=== PATIENT | male | born 1970 | race Caucasian/White ===

== ENCOUNTER 2017-08-03 12:23 | Emergency (ER) | payer OTHER ==
[2017-08-03] MEDS ORDERED: NS 1,000 ML IV ONE (12:42)
[2017-08-03 13:06] LABS: PLATELET COUNT 242 10^3/uL (150-400)
--- NOTE | 2017-08-03 13:58 | EDPHY ---
H & P Stated Complaint: 3 weeks hypotension/saw pcp may be orthostatic Time Seen by Provider: 08/03/17 12:41 HPI/ROS: CHIEF COMPLAINT: Dizziness HISTORY OF PRESENT ILLNESS: 46-year-old male presents with 3 week history of dizziness. 3 weeks ago after working in his yard, he stood up quickly and had a syncopal episode. He went into the house and then had a recurrent syncopal episode. Since then when he stands up, he often feels dizzy. He has not fainted again. This morning he developed tunnel vision after standing up. 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 No headache, chest pain or shortness of breath No other associated symptoms. REVIEW OF SYSTEMS: complete 10 point ROS negative except at noted in the HPI - Personal History Current Tetanus/Diphtheria Vaccine: Yes - Medical/Surgical History Hx Asthma: No Hx Chronic Respiratory Disease: No Hx Diabetes: No Hx Cardiac Disease: No Hx Renal Disease: No Hx Cirrhosis: No Hx Alcoholism: No Hx HIV/AIDS: No Hx Splenectomy or Spleen Trauma: No Other PMH: PSH: B shoulder;. PMH: denies - Social History Smoking Status: Never smoked - Physical Exam Exam: General Appearance: Alert, pleasant Eyes: Pupils equal and round, no conjunctival pallor or injection ENT, Mouth: Mucous membranes moist Neck: Normal inspection Respiratory: Lungs are clear to auscultation Cardiovascular: Regular rate and rhythm Gastrointestinal: Abdomen is soft and nontender Neurological: Alert, oriented x3, cranial nerves II through XII intact, motor 5 /5, sensory intact to light touch, normal gait. Skin: Warm and dry, no rash Extremities: Nontender, no pedal edema Psychiatric: Mood and affect normal Constitutional: Initial Vital Signs Temperature (C) 36.9 C 08/03/17 12:27 Heart Rate 48 L 08/03/17 12:27 Respiratory Rate 18 08/03/17 12:27 Blood Pressure 112/69 08/03/17 12:27 O2 Sat (%) 97 08/03/17 12:27 O2 Delivery Mode Room Air Allergies/Adverse Reactions: iodine Allergy (Verified 08/03/17 12:26) ANESTHESIA Allergy (Uncoded 01/09/12 16:24) IMPAIRMENT OF COGNITIVIE FUNCTION CT CONTRAST Allergy (Uncoded 09/26/14 15:06) ANY NARCOTIC Adverse Reaction (Severe, Uncoded 12/28/08 16:15) THROW UP Home Medications: Medication Instructions Recorded Valacyclovir HCl [Valtrex] 1,000 mg PO TID 7 Days tab 09/26/14 Finasteride 08/03/17 Medical Decision Making - Diagnostics EKG Interpretation: EKG interpreted by me reveals sinus bradycardia, rate 45, no ST or T segment changes. Interpretation: Borderline EKG. ED Course/Re-evaluation: This patient presents with orthostatic dizziness/syncope. He is well-appearing and physical exam is normal. Orthostatics vital signs are normal. EKG interpreted me reveals no evidence of serious dysrhythmia or ischemia. I feel that he is safe and stable for discharge home. He has an appointment for follow -up with cardiology. Warning signs discussed. Differential Diagnosis: Dizziness including but not limited to peripheral and central causes of vertigo , orthostatic causes including dehydration, and blood loss. - Data Points Laboratory Results: Laboratory Results 08/03/17 12:56 08/03/17 12:56 08/03/17 08/03/17 12:56 12:56 WBC 5.68 10^3/uL 10^3/uL (3.80-9.50) RBC 4.96 10^6/uL 10^6/uL (4.40-6.38) Hgb 14.9 g/dL g/dL (13.7-17.5) Hct 44.3 % % (40.0-51.0) MCV 89.3 fL fL (81.5-99.8) MCH 30.0 pg pg (27.9-34.1) MCHC 33.6 g/dL g/dL (32.4-36.7) RDW 12.7 % % (11.5-15.2) Plt Count 242 10^3/uL 10^3/uL (150-400) MPV 9.9 fL fL (8.7-11.7) Neut % (Auto) 69.6 % % (39.3-74.2) Lymph % (Auto) 22.5 % % (15.0-45.0) [place] % (Auto) 6.3 % % (4.5-13.0) Eos % (Auto) 1.1 % % (0.6-7.6) Baso % (Auto) 0.5 % % (0.3-1.7) Nucleat RBC Rel Count 0.0 % % (0.0-0.2) Absolute Neuts (auto) 3.95 10^3/uL 10^3/uL (1.70-6.50) Absolute Lymphs (auto) 1.28 10^3/uL 10^3/uL (1.00-3.00) Absolute Monos (auto) 0.36 10^3/uL 10^3/uL (0.30-0.80) Absolute Eos (auto) 0.06 10^3/uL 10^3/uL (0.03-0.40) Absolute Basos (auto) 0.03 10^3/uL 10^3/uL (0.02-0.10) Absolute Nucleated RBC 0.00 10^3/uL 10^3/uL (0-0.01) Immature Gran % 0.0 % % (0.0-1.1) Immature Gran # 0.00 10^3/uL 10^3/uL (0.00-0.10) Sodium 143 mEq/L mEq/L (135-145) Potassium 4.3 mEq/L mEq/L (3.3-5.0) Chloride 106 mEq/L mEq/L (97-110) Carbon Dioxide 25 mEq/l mEq/l (22-31) Anion Gap 12 mEq/L mEq/L (8-16) BUN 12 mg/dL mg/dL (7-23) Creatinine 1.0 mg/dL mg/dL (0.7-1.3) Estimated GFR > 60 Glucose 84 mg/dL mg/dL (70-100) Calcium 9.2 mg/dL mg/dL (8.5-10.4) Medications Given: Discontinued Medications Sodium Chloride (Ns) 1,000 mls @ 0 mls/hr IV ONCE ONE; Wide Open PRN Reason: Protocol Stop: 08/03/17 12:43 Last Admin: 08/03/17 12:53 Dose: 1,000 mls Departure - Departure Disposition: Home, Routine, Self-Care Clinical Impression: Dizziness Condition: Good Instructions: Dizziness (ED) Additional Instructions: Keep your appointment with Cardiology on Sunday. Drink plenty of fluids. Return for worsening symptoms or any concerns. Referrals: Tasha Michel MD [Primary Care Provider] - As per Instructions
--- NOTE | 2017-08-03 14:23 | CPEKG ---
Heart Rate: 45 RR Interval: 1333 P-R Interval: 164 QRSD Interval: 88 QT Interval: 504 QTC Interval: 437 P [place]: 77 QRS [place]: 41 T Wave [place]: 34 EKG Severity - BORDERLINE ECG - EKG Impression: SINUS BRADYCARDIA EKG Impression: PROBABLE LEFT ATRIAL ABNORMALITY Electronically Signed By: Joanne Green 03-Aug-2017 14:25:55
[2017-08-03 14:32] VITALS: BP 114/65
== END 2017-08-03 14:32 | disposition home or self-care (01) ==
DX: R42 Dizziness and giddiness (principal); E86.9 Volume depletion, unspecified

== ENCOUNTER → 2017-11-02 | Outpatient (CLI) | payer OTHER | LOC: FIMAGING 11:00 | PROVIDERS: ATTEND Physician Assistant | DX: R05 Cough (principal) ==